=== PATIENT | male | born 1965 | race Two or more races ===

== ENCOUNTER 2020-05-02 18:32 | Inpatient (IN) | payer OTHER ==
[~2020-05-02] VITALS: Ht 170.2 cm; Wt 76.5 kg
--- NOTE | 2020-05-02 18:53 | NUR ---
PT AMBULATED TO ED TODAY. PER PT HE HAS USED METH AND MARIJUANA TODAY AROUND 0200. PT STATES HE WAS LEFT IN [place] WITH NO WAY TO GET BACK TO [place] AND FEELS IF HE IS HAVING A PANIC ATTACK. PT STATES HE HAS SOME TIGHTNESS IN HIS CHEST, PT STATES PAIN IS ABOUT 2/10 IN CHEST. PT RESTING IN [facility], CARDIAC MONITORING AND CONTINUOUS PULSE OX ON.
--- NOTE | 2020-05-02 19:37 | NUR ---
PT RESTING IN [facility], STATES NO NEEDS AT THIS TIME.
[2020-05-02 19:47] LABS: BASOPHILS % (AUTO) 0 % (0-1); EOSINOPHILS % (AUTO) 1 % (1-7); LYMPHOCYTES % (AUTO) 23 % (22-44); MEAN CORPUSCULAR HEMOGLOBIN 28.8 pg (27.5-34.5); MEAN CORPUSCULAR HGB CONC 33.6 g/dL (33.2-36.2); MEAN PLATELET VOLUME 7.9 fL (7.4-10.4); MONOCYTES % (AUTO) 6 % (2-9); NEUTROPHILS % (AUTO) 70 % (42-75); PLATELET COUNT 227 x10^3/uL (130-400); RED BLOOD COUNT 5.06 x10^6/uL (4.38-5.82); RED CELL DISTRIBUTION WIDTH 13.8 % (9.4-14.8)
[2020-05-02 19:48] LABS: MD NO
[2020-05-02 19:54] LABS: ALBUMIN 3.8 g/dL (3.4-5.0); ANION GAP 3 mmol/L (5-15); CALCIUM 9.1 mg/dL (8.5-10.1); CHLORIDE 110 mmol/L (98-107)
[2020-05-02 19:58] LABS: TROPONIN I 0.101 ng/mL (0.000-0.045)
[2020-05-02] MEDS ORDERED: OMNIPAQUE 350 MG/ML, 100ML BOTTLE ONE (20:00)
--- NOTE | 2020-05-02 20:03 | NUR ---
BREAK RN: PIV PLACED FOR CTA
--- NOTE | 2020-05-02 20:20 | NUR ---
BREAK RN: PATIENT TO CT
[2020-05-02] MEDS ORDERED: SODIUM CHLORIDE FLUSH 10ML SYR IVF PRN (21:00)
[2020-05-02] MEDS ORDERED: ASPIRIN 325 MG TABLET PO ONE (21:00)
[2020-05-02] MEDS ORDERED: ASPIRIN 325 MG TABLET ONE (21:14)
[2020-05-02] MEDS ORDERED: ACETAMINOPHEN 325 MG TABLET PO PRN (22:30)
[2020-05-02] MEDS ORDERED: MELATONIN 5 MG TABLET PO PRN (22:30)
[2020-05-02] MEDS ORDERED: POTASSIUM CHLORIDE 20 MEQ TAB.ER.PRT PO ONE (22:30)
[2020-05-02] MEDS ORDERED: SODIUM CHLORIDE 0.9% 1,000 ML IV SCH (22:30)
[2020-05-02] MEDS ORDERED: HEPARIN 5,000 UNITS/ML, 1ML SQ SCH (22:30)
[2020-05-02] MEDS ORDERED: LABETALOL 5MG/ML, 20ML IVPush PRN (22:30)
[2020-05-02] MEDS ORDERED: NITROGLYCERIN 0.4 MG BOTTLE (25 TABS) SL PRN (22:30)
[2020-05-02] MEDS ORDERED: morphine SULFATE 10 MG/ML, 1ML IVPush PRN (22:30)
[2020-05-02] MEDS ORDERED: DOCUSATE 100 MG CAPSULE PO PRN (22:30)
[2020-05-02 23:27] VITALS: BP 118/78
[2020-05-02] MEDS ORDERED: HEPARIN 25,000 UNITS/250ML PMX 250 ML IV PRN (23:45)
[2020-05-02] MEDS ORDERED: HEPARIN 5,000 UNITS/ML, 1ML IV ONE (23:45)
[2020-05-02] MEDS ORDERED: HEPARIN 5,000 UNITS/ML, 1ML IV PRN (23:45)
[2020-05-03] MEDS: ATORVASTATIN 40 MG TABLET PO SCH ×2 (01:37→22:02)
[2020-05-03 01:48] LABS: TROPONIN I 0.119 ng/mL (0.000-0.045)
[2020-05-03] MEDS: HEPARIN 5,000 UNITS/ML, 1ML SQ SCH ×4 (03:00→22:03)
[2020-05-03] MEDS: ASPIRIN 81 MG TABLET EC PO SCH (05:31)
[2020-05-03 07:20] VITALS: BP 140/88
[2020-05-03 07:39] LABS: BASOPHILS % (AUTO) 0 % (0-1); EOSINOPHILS % (AUTO) 3 % (1-7); LYMPHOCYTES % (AUTO) 26 % (22-44); MEAN CORPUSCULAR HEMOGLOBIN 28.9 pg (27.5-34.5); MEAN CORPUSCULAR HGB CONC 33.4 g/dL (33.2-36.2); MEAN PLATELET VOLUME 7.8 fL (7.4-10.4); MONOCYTES % (AUTO) 7 % (2-9); NEUTROPHILS % (AUTO) 64 % (42-75); PLATELET COUNT 220 x10^3/uL (130-400); RED CELL DISTRIBUTION WIDTH 14.2 % (9.4-14.8)
[2020-05-03 07:40] LABS: MD NO
[2020-05-03 07:51] LABS: ANION GAP 6 mmol/L (5-15); CALCIUM 9.1 mg/dL (8.5-10.1); CHLORIDE 108 mmol/L (98-107)
[2020-05-03 07:58] LABS: CHOL/HDL RATIO 3.6; CHOLESTEROL, TOTAL 218 mg/dL (140-239); CREATININE 0.96 mg/dL (0.7-1.3); HDL CHOL % 28 % (26-37); HDL CHOLESTEROL (DIRECT) 60 mg/dL (40-60); LDL CHOLESTEROL,CALCULATED 140 mg/dL (54-169); LDL/HDL RATIO 2.3 (0.5-3.0); TRIGLYCERIDES 89 mg/dL (50-200); VLDL CHOLESTEROL 18 mg/dL (0-25)
[2020-05-03] MEDS: LISINOPRIL 5 MG TABLET PO SCH (09:05)
[2020-05-03] MEDS: INSULIN LISPRO 100 UNITS/ML, PEN SQ-INSULIN SCH ×3 (11:01→21:00)
[2020-05-03 13:07] LABS: TROPONIN I 0.126 ng/mL (0.000-0.045)
[2020-05-03 14:16] VITALS: BP 119/81
[2020-05-03 19:31] VITALS: BP 128/69
[2020-05-04 00:37] VITALS: BP 119/80
[2020-05-04 05:07] LABS: BASOPHILS % (AUTO) 1 % (0-1); EOSINOPHILS % (AUTO) 3 % (1-7); LYMPHOCYTES % (AUTO) 34 % (22-44); MEAN CORPUSCULAR HEMOGLOBIN 28.7 pg (27.5-34.5); MEAN CORPUSCULAR HGB CONC 33.6 g/dL (33.2-36.2); MEAN PLATELET VOLUME 8.3 fL (7.4-10.4); MONOCYTES % (AUTO) 7 % (2-9); NEUTROPHILS % (AUTO) 56 % (42-75); PLATELET COUNT 230 x10^3/uL (130-400); RED CELL DISTRIBUTION WIDTH 14.1 % (9.4-14.8)
[2020-05-04] MEDS: ASPIRIN 81 MG TABLET EC PO SCH (05:08)
[2020-05-04] MEDS: HEPARIN 5,000 UNITS/ML, 1ML SQ SCH ×2 (05:09→20:36)
[2020-05-04 05:17] LABS: ALBUMIN 3.3 g/dL (3.4-5.0); ANION GAP 5 mmol/L (5-15); CHLORIDE 106 mmol/L (98-107); MD NO
[2020-05-04 05:23] LABS: ALANINE AMINOTRANSFERASE 29 U/L (12-78); ALKALINE PHOSPHATASE 113 U/L (45-117); BILIRUBIN,TOTAL 0.7 mg/dL (0.2-1.0); CREATININE 1.09 mg/dL (0.7-1.3); TOTAL PROTEIN 6.7 g/dL (6.4-8.2); TROPONIN I 0.116 ng/mL (0.000-0.045)
[2020-05-04] MEDS: INSULIN LISPRO 100 UNITS/ML, PEN SQ-INSULIN SCH ×4 (06:31→20:32)
[2020-05-04 07:03] VITALS: BP 114/77
[2020-05-04] MEDS ORDERED: POTASSIUM CHLORIDE 20 MEQ TAB.ER.PRT PO ONE (09:00)
[2020-05-04] MEDS: LISINOPRIL 5 MG TABLET PO SCH (10:44)
[2020-05-04] MEDS ORDERED: SODIUM CHLORIDE 0.9% 1,000 ML IV SCH (11:00)
[2020-05-04 12:32] VITALS: BP 138/86
[2020-05-04] MEDS ORDERED: FENTANYL PF 100 MCG/2ML ONE (15:11)
[2020-05-04] MEDS ORDERED: TICAGRELOR 90 MG TABLET ONE (15:11)
[2020-05-04] MEDS ORDERED: MIDAZOLAM 1 MG/ML, 5ML ONE (15:11)
[2020-05-04] MEDS ORDERED: VERAPAMIL 2.5 MG/ML, 2ML ONE (15:11)
[2020-05-04] MEDS ORDERED: LIDOCAINE-MPF 1%, 5ML ONE (15:11)
[2020-05-04] MEDS ORDERED: BIVALIRUDIN 250 MG ONE (15:11)
[2020-05-04] MEDS ORDERED: HEPARIN 1,000 UNITS/ML, 10ML ONE (15:12)
[2020-05-04] MEDS ORDERED: NITROGLYCERIN 30 MCG/ML, 20ML VIAL ONE (15:12)
[2020-05-04 20:10] VITALS: BP 113/75
[2020-05-04] MEDS: ATORVASTATIN 40 MG TABLET PO SCH (20:36)
[2020-05-05 00:57] VITALS: BP 124/84
[2020-05-05] MEDS: ASPIRIN 81 MG TABLET EC PO SCH (04:37)
[2020-05-05] MEDS: HEPARIN 5,000 UNITS/ML, 1ML SQ SCH ×2 (04:37→13:00)
[2020-05-05 05:33] LABS: ANION GAP 6 mmol/L (5-15); CALCIUM 9.4 mg/dL (8.5-10.1); CHLORIDE 107 mmol/L (98-107); CREATININE 1.07 mg/dL (0.7-1.3)
[2020-05-05] MEDS: INSULIN LISPRO 100 UNITS/ML, PEN SQ-INSULIN SCH ×3 (07:00→16:26)
[2020-05-05 07:32] VITALS: BP 120/78
[2020-05-05] MEDS: LISINOPRIL 5 MG TABLET PO SCH (08:50)
[2020-05-05] MEDS ORDERED: METOPROLOL TARTRATE 25 MG TAB PO SCH (09:00)
[2020-05-05 12:20] VITALS: BP 128/86
[2020-05-05] MEDS ORDERED: LISI5TAB7 PO (14:48)
[2020-05-05] MEDS ORDERED: METO25TA2 PO (14:48)
[2020-05-05 15:35] VITALS: BP 138/86
[2020-05-05 15:36] VITALS: BP 130/82
[2020-05-05 15:37] VITALS: BP 132/87
== END 2020-05-05 17:00 | disposition home or self-care (01) | DRG 287 ==
LOC: ED 19:28 → EDIP 21:11 → 5SO 23:28 → DCLOUNGE 05-05 16:46
PROVIDERS: ADMIT Internal Medicine; ATTEND Internal Medicine
PROC: 4A023N7 Measurement of Cardiac Sampling and Pressure, Left Heart, Percutaneous Approach (ICD-10-PCS; principal; 2020-05-04)
PROC: B2111ZZ Fluoroscopy of Multiple Coronary Arteries using Low Osmolar Contrast (ICD-10-PCS; 2020-05-04)
PROC: B2151ZZ Fluoroscopy of Left Heart using Low Osmolar Contrast (ICD-10-PCS; 2020-05-04)
DX: R07.89 Other chest pain (principal); I42.7 Cardiomyopathy due to drug and external agent; E11.9 Type 2 diabetes mellitus without complications; F10.10 Alcohol abuse, uncomplicated; F12.20 Cannabis dependence, uncomplicated; F15.10 Other stimulant abuse, uncomplicated; F17.210 Nicotine dependence, cigarettes, uncomplicated; F41.1 Generalized anxiety disorder; I10 Essential (primary) hypertension; I25.5 Ischemic cardiomyopathy; I77.810 Thoracic aortic ectasia; Z82.3 Family history of stroke; Z91.14 Patient's other noncompliance with medication regimen; Z91.19 Patient's noncompliance with other medical treatment and regimen; Z79.899 Other long term (current) drug therapy; Z79.82 Long term (current) use of aspirin; Z79.891 Long term (current) use of opiate analgesic; Z79.01 Long term (current) use of anticoagulants
CPT/HCPCS: 36415; 71045; 71275; 78452; 80048; 80053; 80061; 82040; 82962; 83036; 83735; 84443; 84484; 85025; 93005; 93017; 93306; 93458; 99156; C1769; C1894; G0378; J0583; J1644; J2250; J3010; Q9967; A9502; J1815; J7030